=== PATIENT | male | born 1950 | race Caucasian/White ===

== ENCOUNTER 2022-12-11 08:00 | Outpatient (CLI) | payer MEDICARE, BC ==
--- NOTE | 2022-12-11 19:45 | XRAY Report ---
PROCEDURE: Chest 2 View X-Ray INDICATIONS: BRONCHITIS, ACUTE TECHNIQUE: 2 views of the chest were acquired. COMPARISON: None. FINDINGS: Surgical changes and devices: Left-sided dual-chamber pacemaker Lungs and pleura: No pleural effusions or pneumothorax. Lungs are clear. Mediastinum: Mediastinal contours appear normal. Heart size is normal. Bones and chest wall: No suspicious bony lesions. Overlying soft tissues appear unremarkable. IMPRESSION: No acute cardiopulmonary process. Reviewed by: Perez Romero MD on 12/11/2022 6:44 PM BETH Approved by: Perez Romero MD on 12/11/2022 6:44 PM AKDT Station ID: [id number]
== END 2022-12-11 23:59 | disposition home or self-care (01) ==
LOC: DI.S 08:00
PROVIDERS: ATTEND Emergency Medicine
DX: J20.9 Acute bronchitis, unspecified (principal)

== ENCOUNTER 2023-07-18 08:00 | Outpatient (CLI) | payer MEDICARE, BC | END 2023-07-18 08:01 | disposition home or self-care (01) | LOC: LAB.N 08:00 | PROVIDERS: ATTEND Physician Assistant Medical | DX: R05.1 Acute cough (principal) ==

== ENCOUNTER 2023-07-18 14:15 | Outpatient (CLI) | payer MEDICARE, BC ==
--- NOTE | 2023-07-18 15:51 | XRAY Report ---
PROCEDURE: Chest 2V INDICATIONS: ACUTE COUGH TECHNIQUE: 2 views of the chest were acquired. COMPARISON: Chest x-ray 12/11/2022. FINDINGS: Surgical changes and devices: Left chest wall pacemaker. Lungs and pleura: No pleural effusions or pneumothorax. Peripheral bibasilar opacities. Mediastinum: Mediastinal contours appear normal. Heart size is normal. Bones and chest wall: No suspicious bony lesions. Overlying soft tissues appear unremarkable. IMPRESSION: Peripheral bibasilar opacities are noted, concerning for infection. Recommend radiographic follow-up to resolution. Reviewed by: Yordy Abbott MD on 07/18/2023 3:50 PM PST Approved by: Yordy Abbott MD on 07/18/2023 3:50 PM PST Station ID: [id number]
== END 2023-07-18 14:30 | disposition home or self-care (01) ==
LOC: DI.N 14:15
PROVIDERS: ATTEND Physician Assistant Medical
DX: R05.1 Acute cough (principal); R91.8 Other nonspecific abnormal finding of lung field

== ENCOUNTER 2023-07-30 12:15 | Outpatient (CLI) | payer MEDICARE, BC ==
--- NOTE | 2023-07-30 17:51 | XRAY Report ---
PROCEDURE: Chest 2V INDICATIONS: CHEST COUGH TECHNIQUE: 2 views of the chest were acquired. COMPARISON: 07/18/2023 and 12/11/2022. FINDINGS: Surgical changes and devices: Left chest wall pacemaker leads are in the region of right atrium and right ventricle.. Lungs and pleura: No pleural effusions or pneumothorax. Mildly increased bronchovascular markings in bilateral hilar region are seen with mild bronchial wall thickening. No definite focal infiltrate. Mediastinum: Mediastinal contours appear normal. Heart size is normal. Bones and chest wall: No suspicious bony lesions. Overlying soft tissues appear unremarkable. IMPRESSION: Suggestion of mild reactive airway disease such as bronchitis or viral illness. No definite focal inf iltrate. No pleural effusion or pneumothorax. Reviewed by: Kavin Sanchez MD on 07/30/2023 5:50 PM PST Approved by: Kavin Sanchez MD on 07/30/2023 5:50 PM PST Station ID: [id number]
== END 2023-07-30 12:30 | disposition home or self-care (01) ==
LOC: DI.N 12:15
PROVIDERS: ATTEND Physician Assistant Medical
DX: R05.9 Cough, unspecified (principal)